=== PATIENT | male | born 1985 | race Caucasian/White ===

== ENCOUNTER 2016-10-23 20:30 | Emergency (ER) | payer SELFPAY ==
[~2016-10-23] VITALS: Ht 182.9 cm; Wt 78.0 kg
[~2016-10-23 20:30] MED LIST: Z.0.NO CURRENT MEDS
[2016-10-23 20:34] VITALS: BP 147/97; PULSE 140; RESP 16; TEMP 97.8; O2SAT 97
[2016-10-23] MEDS ORDERED: LIDOCAINE 1%/EPINEPHrine 1:100,000 SOLN 20 ML VIAL INFIL ONE (21:15)
[2016-10-23] MEDS ORDERED: TETANUS/DIPHTHERIA TOXOID ADULT 0.5 ML VIAL IM ONE (21:15)
[2016-10-23] MEDS ORDERED: LIDOCAINE 1%/EPINEPHrine 1:100,000 SOLN 30 ML VIAL ONE (21:19)
[2016-10-23] MEDS ORDERED: ULTR50TA5 PO (21:19)
[2016-10-23] MEDS ORDERED: IBUP-232 PO (21:19)
[2016-10-23] MEDS ORDERED: AMOX500T PO (21:19)
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
--- NOTE | 2016-10-23 21:55 | PD ---
Physical Exam Date Seen by Provider: Oct 23, 2016 Time Seen by Provider: 21:53 Narrative Skin: Patient has a 4 cm laceration to the anterior scalp. The laceration goes into the subcutaneous tissues. No deep structure injury. No bony step-off. Data Data Last Documented VS Vital Signs Date Time Temp Pulse Resp B/P Pulse Ox O2 Delivery O2 Flow Rate FiO2 10/23/16 20:53 Room Air 10/23/16 20:34 97.8 140 16 147/97 97 Orders Lidocai-Epi 1%-1:100,000 Inj (Xylocaine- (10/23/16 21:15) Tetanus/Diphtheria Tox Adult (Tetanus/Di (10/23/16 21:15) Lidocai-Epi 1%-1:100,000 Inj (Xylocaine- (10/23/16 21:19) MDM Medical Record Reviewed: Yes Supervised Visit with MOISÉS: Yes Differential Diagnosis MDM: High Differential diagnoses: Fracture, sprain, strain, dislocation, contusion, neurovascular injury Narrative Course Patient's laceration is closed with estela, tetanus status updated. Procedures Procedure Narrative LACERATION LOCATION: Anterior scalp LENGTH: 4 cm NUMBER OF STITCHES/ESTELA: 7 REPAIR: The area of the laceration was prepped with Betadine and sterilely draped. The laceration was infiltrated with 1% lidocaine with epinephrine. The wound was copiously irrigated and explored without evidence of foreign body , tendon injury or neurovascular injury. The wound was closed using estela. This was a simple single layer repair. A sterile dressing was applied. The patient was advised to keep the dressing clean and dry. Patient tolerated the procedure well. Diagnosis Primary Impression: Scalp laceration Qualified Code: S01.01XA - Scalp laceration, initial encounter Additional Impression: Avulsion of multiple teeth due to trauma Qualified Code: S03.2XXA - Avulsion of multiple teeth due to trauma, initial encounter Patient Instructions: General Instructions Additional Instruction: Amoxicillin as directed. Wound care daily. Return in 9 days for staple removal. Med/Other Pt SpecificInfo: Wound Care Scripts Ibuprofen 600 Mg [id number] Mg PO Q6H PRN (PAIN) #30 TAB Ref 0 Prov:Matt Huggins MD 10/23/16 Tramadol (Ultram)50 Mg Tab50 Mg PO Q6H PRN (PAIN) #20 TAB Ref 0 Prov:Matt Huggins MD 10/23/16 Amoxicillin 500 Mg Qsq900 Mg PO TID #21 TAB Prov:Matt Huggins MD 10/23/16 Disposition: 01 DISCHARGE HOME Condition: Stable [place] Oct 23, 2016 21:55
== END 2016-10-23 22:11 | disposition home or self-care (01) ==
LOC: NEPD 20:30
DX: S01.01XA Laceration without foreign body of scalp, initial encounter (principal); S03.2XXA Dislocation of tooth, initial encounter; Z23 Encounter for immunization; Y04.0XXA Assault by unarmed brawl or fight, initial encounter; W18.30XA Fall on same level, unspecified, initial encounter; Y93.89 Activity, other specified; Y92.89 Other specified places as the place of occurrence of the external cause; Y99.8 Other external cause status; F17.210 Nicotine dependence, cigarettes, uncomplicated
CPT/HCPCS: 12002; 90471; 90714